=== PATIENT | female | born 1965 | race Caucasian/White ===

== ENCOUNTER 2017-02-12 17:38 | Emergency (ER) | payer OTHER ==
[~2017-02-12] VITALS: Ht 167.6 cm; Wt 80.7 kg
[2017-02-12 17:40] VITALS: BP 158/88
[2017-02-12] MEDS ORDERED: IBUPROFEN 600 MG TABLET PO ONE ×2 (19:00→19:05)
--- NOTE | 2017-02-12 20:54 | NUR ---
EMT AT BEDSIDE TO WRAP R ANKLE WITH HERNAN[employer] BANDAGE. PT GIVEN CRUTCHES AND INSTRUCTED ON THE PROPER USE, VERBALIZED UNDERSTANDING.
== END 2017-02-12 20:59 | disposition home or self-care (01) ==
LOC: ER 17:40
DX: S93.401A Sprain of unspecified ligament of right ankle, initial encounter (principal); S80.01XA Contusion of right knee, initial encounter; S70.01XA Contusion of right hip, initial encounter; M79.651 Pain in right thigh; E03.9 Hypothyroidism, unspecified; E11.9 Type 2 diabetes mellitus without complications; Z88.0 Allergy status to penicillin; Z88.5 Allergy status to narcotic agent; Z88.6 Allergy status to analgesic agent; W00.0XXA Fall on same level due to ice and snow, initial encounter; Y93.89 Activity, other specified; Y92.89 Other specified places as the place of occurrence of the external cause; Y99.8 Other external cause status
CPT/HCPCS: 73502; 73551; 73564; 73610; 99284; A4606; Z7610; 73552